=== PATIENT | female | born 1960 | race Hispanic/Latino ===

== ENCOUNTER → 2018-07-09 | Day surgery (SDC) | payer OTHER ==
[~2018-07-09] MED LIST: FENTANYL CITRATE/PF 100MCG/2 ML INJ ONE; LIDOCAINE HCL 2% LOCAL INJ 5 ML SDV VIAL INJ ONE; MIDAZOLAM HCL 2 MG/2 ML VIAL ONE; NEXIUM40 MG PO; PROPOFOL IV EMULSION 10 MG/ML 50 ML VIAL ONE
--- NOTE | 2018-07-09 23:27 | Operative Report ---
DATE OF PROCEDURE: July 09, 2018 REFERRING PHYSICIAN: Dr. Юлия Blanco. PROCEDURE PERFORMED: Esophagogastroduodenoscopy with biopsies. INDICATIONS FOR EGD: Acid reflux. MEDICATION: Patient was done under MAC. Please see anesthesiologist's note. PROCEDURE: With the patient in left lateral decubitus position, the flexible fiberoptic Olympus gastroscope was introduced into the esophagus under direct visualization without any difficulty. There was some patchy erythema noted in distal esophagus. A minute tongue of velvety red mucosa was noted to extend proximally from the GE junction, and biopsies were obtained to rule out Hollis's. The scope was then advanced with ease into the stomach. Mucosa overlying the antrum and the body revealed some patchy intense erythema and moderate edema, and biopsies were obtained and sent to stain for H. pylori. Pylorus appeared to be of normal contour and shape. It was intubated with ease, and the scope was advanced all the way to the 2nd portion of the duodenum. The duodenal fold appeared somewhat flattened, and biopsies were obtained to rule out sprue along with biopsies from the duodenal bulb. The scope was then withdrawn back into the stomach and retroflexed. The mucosa overlying the fundus and the cardia appeared to be within normal limits. The scope was then straightened out. It was subsequently withdrawn. Patient tolerated the procedure well. IMPRESSION 1. Distal esophagitis, mild. 2. Rule out Hollis's esophagus. 3. Gastritis, biopsied. Biopsies sent to stain for Helicobacter pylori. 4. Rule out sprue. PLAN: Follow up histology. Increase Nexium to 40 mg 1 p.o. a.c. b.i.d. Job#: [id number] LPA cc:ЮЛИЯ BLANCO MD
== END | disposition home or self-care (01) ==
LOC: OR 11:58
PROVIDERS: ATTEND Internal Medicine Gastroenterology
DX: K21.9 Gastro-esophageal reflux disease without esophagitis (principal); K29.70 Gastritis, unspecified, without bleeding; K20.9 Esophagitis, unspecified; K22.8 Other specified diseases of esophagus; I45.10 Unspecified right bundle-branch block; F41.9 Anxiety disorder, unspecified; Z01.810 Encounter for preprocedural cardiovascular examination
CPT/HCPCS: 43239; 93005; J2001; J2250